=== PATIENT | female | born 1970 | race Caucasian/White ===

== ENCOUNTER 2020-04-15 15:01 | Outpatient (CLI) | payer OTHER | END 2020-04-15 15:02 | disposition home or self-care (01) | LOC: COV 15:01 | PROVIDERS: ATTEND Family Medicine | DX: Z20.828 Contact with and (suspected) exposure to other viral communicable diseases (principal) ==

== ENCOUNTER 2020-04-25 23:00 | Outpatient (CLI) | payer OTHER | END 2020-04-25 23:01 | disposition home or self-care (01) | LOC: COV 23:00 | PROVIDERS: ATTEND Family Medicine | DX: U07.1 COVID-19 (principal) ==